=== PATIENT | male | born 1935 | race Hispanic/Latino ===

== ENCOUNTER 2018-04-12 06:25 | Observation (INO) | payer MEDICARE ==
[2018-04-06 10:39] VITALS: BMI 25.1
[2018-04-12] MEDS ORDERED: Etomidate 20 mg/10ml Inj IV ONE (08:04)
[2018-04-12] MEDS ORDERED: Phenylephrine 10 mg/ml Inj ONE (08:04)
[2018-04-12] MEDS ORDERED: Succinylcholine 200 mg/10 ml Inj IV ONE (08:04)
--- NOTE | 2018-04-12 08:32 | CP.SDSHP ---
Same Day Surgery H & P - History Proposed Procedure: recurrent right inguinal hernia repair with mesh placement Pre-Op Diagnosis: recurrent right inguinal hernia - Previous Medical/Surgical History Cardiac: Hypertension Pain: 2.Mild Pain Comments: Spoke with Dr. Swift who confirmed patient is not on any blood thinners. States he is on baby aspirin. Pt reports not taking baby aspirin in over a week. - Allergies Allergies: Allergies hay fever Allergy (Uncoded 04/12/18 06:38) CONGESTION RUNNY NOSE, SNEEZING - Physical Exam Vital Signs: Vital Signs 04/12/18 04/12/18 07:11 07:15 Temperature 98.5 F Pulse Rate 76 76 Respiratory 18 Rate Blood Pressure 137/69 O2 Sat by Pulse 97 Oximetry Mental Status: Alert & Oriented x3 Neuro: WNL Heart: WNL Lungs: WNL - {Optional Preform as Required} Abdomen: Other (Right inguinal hernia, not incarcerated) Integument: WNL : Other (BPH) - Impression Impression: 82M with recurrent right inguinal hernia Pt. Evaluated Today:Candidate for Anesthesia & Procedure: Yes - Date & Time Date: 04/12/18 Time: 08:33 Short Stay Discharge - Short Stay Discharge Admitting Diagnosis/Reason for Visit: K40.90 Disposition: HOME/ ROUTINE Referrals: Vin Swift MD [Primary Care Provider] - Additional Instructions (Diet, Activity): Follow up with Dr. Bee in 10-14 days Apply ice to affected area for 24 hours No heavy lifting May remove bandage in 48 hours OK to shower in 48 hours Resume regular diet
[2018-04-12] MEDS ORDERED: ceFAZolin IV 2 gm in Dextrose 2 GM/50 ML BAG IVPB ONE (08:35)
[2018-04-12] MEDS ORDERED: Ropivacaine 0.5% 30ML IV ONE (08:42)
[2018-04-12] MEDS ORDERED: Lactated Ringer's 1,000 ML IV ONE ×2 (08:45→09:52)
[2018-04-12] MEDS ORDERED: HYDROmorphone 0.5 mg/0.5 ml ISec IVP PRN (10:16)
[2018-04-12] MEDS ORDERED: Oxycodone/Acetaminophen 5/325 mg Tab PO PRN (10:18)
--- NOTE | 2018-04-12 10:21 | PCM.SURG1 ---
Surgeon's Initial Post Op Note - Surgeon's Notes Surgeon: Dr. Bee Tank Builder Supervisor: Dr. Herndon PGY2 Type of Anesthesia: General LMA Anesthesia Administered By: Dr. Edwards Pre-Operative Diagnosis: right recurrent inguinal hernia Operative Findings: Right inguinal hernia Post-Operative Diagnosis: same Operation Performed: Recurrent Right inguinal hernia repair with mesh placement Specimen/Specimens Removed: hernia sac Estimated Blood Loss: EBL {In ML}: 15 Blood Products Given: N/A Drains Used: No Drains Post-Op Condition: Good Date of Surgery/Procedure: 04/12/18 Time of Surgery/Procedure: 10:20
[2018-04-12] MEDS ORDERED: Lactated Ringer's 1,000 ML IV SCH (10:30)
[2018-04-12] MEDS: Trimethobenzamide 200 mg/2 mL Inj IM ONE ×2 (11:35→17:05)
[2018-04-12] MEDS ORDERED: Dexamethasone 4 mg/1 ml IVP PRN (12:36)
[2018-04-13 06:37] VITALS: RESP 20; TEMP 97.9
[2018-04-13 06:50] LABS: BASO % 0.1 % (0.0-2.0); HEMOGLOBIN 13.7 g/dL (12.0-18.0); LYMPH # 1.3 K/uL (1.0-4.3); LYMPH % 8.8 % (20.0-40.0); MEAN CELL VOLUME 86.4 fl (80.0-94.0); MEAN CORPUSCULAR HGB CONC 33.6 g/dL (33.0-37.0); MEAN PLATELET VOLUME 9.7 fl (7.2-11.7); MONO # 1.2 K/uL (0.0-0.8); MONO % 8.4 % (0.0-10.0); NEUT # 12.3 K/uL (1.8-7.0); NEUT % 82.7 % (50.0-75.0); PLATELET COUNT 189 K/uL (130-400); RBC 4.73 Mil/uL (4.40-5.90); RED CELL DISTRIBUTION WIDTH 14.2 % (11.5-14.5); WHITE BLOOD COUNT 14.9 K/uL (4.8-10.8)
[2018-04-13 06:58] LABS: BLOOD UREA NITROGEN 18 mg/dl (9-20); CALCIUM 8.7 mg/dL (8.4-10.2); GFR AFRICAN-AMERICAN > 60; GFR NON-AFRICAN AMERICAN > 60
[2018-04-13 08:11] VITALS: BP 142/72; PULSE 74; O2SAT 99
--- NOTE | 2018-04-13 09:32 | CP.PCM.PN ---
Subjective - Date & Time of Evaluation Date of Evaluation: 04/13/18 Time of Evaluation: 07:00 - Subjective Subjective: General Surgery Progress Note - Dr. Bee Objective - Vital Signs/Intake and Output Vital Signs (last 24 hours): Temp Pulse Resp BP Pulse Ox 97.9 F 74 20 142/72 99 04/13/18 08:10 04/13/18 08:10 04/13/18 08:10 04/13/18 08:10 04/13/18 08:10 - Medications Medications: Current Medications Lactated Ringer's (Lactated Ringer's) 1,000 mls @ 100 mls/hr IV .Q10H [facility] Last Admin: 04/12/18 17:05 Dose: Not Given Ondansetron HCl (Zofran Inj) 4 mg IVP Q6 PRN PRN Reason: Nausea/Vomiting Oxycodone/Acetaminophen (Percocet 5/325 Mg Tab) 1 tab PO Q4 PRN PRN Reason: Pain, moderate (4-7) Stop: 04/15/18 10:19 Pantoprazole Sodium (Protonix Inj) 40 mg IVP DAILY [facility] Last Admin: 04/13/18 09:09 Dose: 40 mg - Labs Labs: 04/13/18 05:40 04/13/18 05:40
[2018-04-13 11:41] LABS: LYMPHOCYTE 8 % (20-50); MONOCYTE 8 % (0-10); NEUTROPHIL 84 % (42-75); PLATELET ESTIMATE NORMAL (NORMAL); TOTAL CELLS COUNTED 100
[2018-04-13 11:42] LABS: ANISOCYTOSIS SLIGHT; LARGE PLATELETS PRESENT; OVALOCYTES SLIGHT
--- NOTE | 2018-04-13 12:33 | CP.PCM.CON ---
History of Present Illness - History of Present Illness History of Present Illness: CC: s/p Recurrent Right inguinal hernia repair with mesh placement HPI: 82 y/o man w/ pmh of HTN and HLD is admitted for s/p recurrent right inguinal hernia repair with mesh placement POD 1. The patient tolerated the procedure well and is recovering appropriately. The patient reports he is feeling better today compared to yesterday. The patient reports pain at the surgical site relieved w/ medication. The patient currently denies headaches, chest pain, SOB, dizziness, abdominal pain, nausea, vomiting, diarrhea, dysuria , or fever. The patient was seen and examined this morning at bedside w/ Dr. Swift Review of Systems - Review of Systems All systems: reviewed and no additional remarkable complaints except - Constitutional Constitutional: absent: Chills, Fever - EENT Eyes: absent: Change in Vision - Cardiovascular Cardiovascular: absent: Chest Pain - Respiratory Respiratory: absent: Dyspnea - Gastrointestinal Gastrointestinal: absent: Abdominal Pain, Diarrhea, Nausea, Vomiting - Genitourinary Genitourinary: absent: Dysuria - Integumentary Integumentary: absent: Rash - Neurological Neurological: absent: Dizziness, Headaches Past Patient History - Past Medical History & Family History Past Medical History?: Yes - Past Social History Smoking Status: Never Smoked - CARDIAC Hx Cardiac Disorders: Yes Hx Hypercholesterolemia: Yes Hx Hypertension: Yes - PULMONARY Hx Respiratory Disorders: No - NEUROLOGICAL Hx Neurological Disorder: No - HEENT Hx HEENT Problems: No - RENAL Hx Chronic Kidney Disease: No - ENDOCRINE/METABOLIC Hx Endocrine Disorders: No - HEMATOLOGICAL/ONCOLOGICAL Hx Blood Disorders: No Hx Blood Transfusions: No - INTEGUMENTARY Hx Dermatological Problems: No - MUSCULOSKELETAL/RHEUMATOLOGICAL Hx Musculoskeletal Disorders: No - GASTROINTESTINAL Hx Gastrointestinal Disorders: No - GENITOURINARY/GYNECOLOGICAL Hx Genitourinary Disorders: No - PSYCHIATRIC Hx Emotional Abuse: No Hx Physical Abuse: No - SURGICAL HISTORY Hx Surgeries: Yes Hx Herniorrhaphy: Yes (right inguinal) Hx Tonsillectomy: Yes - ANESTHESIA Hx Anesthesia: Yes Hx Anesthesia Reactions: No Hx Malignant Hyperthermia: No Has any member of the family had a problem w/ anesthesia?: No Meds Allergies/Adverse Reactions: Allergies Allergy/AdvReac Type Severity Reaction Status Date / Time hay fever Allergy CONGESTION Uncoded 04/12/18 06:38 - Medications Medications: Current Medications Lactated Ringer's (Lactated Ringer's) 1,000 mls @ 100 mls/hr IV .Q10H [facility] Last Admin: 04/12/18 17:05 Dose: Not Given Ondansetron HCl (Zofran Inj) 4 mg IVP Q6 PRN PRN Reason: Nausea/Vomiting Oxycodone/Acetaminophen (Percocet 5/325 Mg Tab) 1 tab PO Q4 PRN PRN Reason: Pain, moderate (4-7) Stop: 04/15/18 10:19 Pantoprazole Sodium (Protonix Inj) 40 mg IVP DAILY [facility] Last Admin: 04/13/18 09:09 Dose: 40 mg Physical Exam - Constitutional Appears: Non-toxic, No Acute Distress - Head Exam Head Exam: ATRAUMATIC, NORMAL INSPECTION, NORMOCEPHALIC - Eye Exam Eye Exam: Normal appearance - ENT Exam ENT Exam: Mucous Membranes Moist - Neck Exam Neck exam: Positive for: Full Rom. Negative for: Tenderness - Respiratory Exam Respiratory Exam: Clear to Auscultation Bilateral. absent: Accessory Muscle Use , Decreased Breath Sounds, Rales, Rhonchi, Wheezes, Respiratory Distress - Cardiovascular Exam Cardiovascular Exam: REGULAR RHYTHM. absent: Tachycardia - GI/Abdominal Exam GI & Abdominal Exam: Normal Bowel Sounds. absent: Distended, Tenderness - Exam Additional comments: right inguinal dressing c/d/i - Extremities Exam Extremities exam: Positive for: normal inspection. Negative for: calf tenderness - Neurological Exam Neurological exam: Alert, Normal Gait, Oriented x3 - Skin Skin Exam: Dry, Intact, Normal Color, Warm Results - Vital Signs Recent Vital Signs: Last Vital Signs Temp 97.9 F 04/13/18 08:10 Pulse 74 04/13/18 08:10 Resp 20 04/13/18 08:10 BP 142/72 04/13/18 08:10 Pulse Ox 99 04/13/18 08:10 - Labs Result Diagrams: 04/13/18 05:40 04/13/18 05:40 Labs: Laboratory Results - last 24 hr 04/13/18 04/13/18 05:40 05:40 WBC 14.9 H RBC 4.73 Hgb 13.7 Hct 40.8 MCV 86.4 MCH 29.0 MCHC 33.6 RDW 14.2 Plt Count 189 MPV 9.7 Neut % (Auto) 82.7 H Lymph % (Auto) 8.8 L [place] % (Auto) 8.4 Eos % (Auto) 0.0 Baso % (Auto) 0.1 Neut # (Auto) 12.3 H Lymph # (Auto) 1.3 [place] # (Auto) 1.2 H Eos # (Auto) 0.0 Baso # (Auto) 0.0 Neutrophils % (Manual) 84 H Lymphocytes % (Manual) 8 L Monocytes % (Manual) 8 Platelet Estimate Normal Large Platelets Present Anisocytosis (manual) Slight Macrocytosis (manual) Slight Ovalocytes Slight Sodium 139 Potassium 4.1 Chloride 103 Carbon Dioxide 25 Anion Gap 15 BUN 18 Creatinine 1.0 Est GFR ( Amer) > 60 Est GFR (Non-Af Amer) > 60 Random Glucose 136 H Calcium 8.7 Assessment & Plan (1) S/P right inguinal hernia repair Status: Acute (2) Recurrent right inguinal hernia Status: Chronic (3) HTN (hypertension) Status: Chronic (4) HLD (hyperlipidemia) Status: Chronic - Assessment and Plan (Free Text) Plan: c/w present management afebrile, non-tachycardic, normotensive WBC 14.9 most likely post op/post anesthesia patient has no complaints c/w incentive spirometry monitor for acute changes Dispo: patient is cleared for DC by PMD Dr. Swift, patient seen by Dr. Swift this morning, patient to follow up w/ Dr. Swift 04/17/2018
--- NOTE | 2018-04-13 13:57 | CP.PCM.DIS ---
Provider - Provider Date of Admission: 04/12/18 15:17 Attending physician: Cedric Bee MD Primary care physician: Vin Rocha MD Time Spent in preparation of Discharge (in minutes): 30 Hospital Course - Lab Results Lab Results: Most Recent Lab Values WBC 14.9 K/uL (4.8-10.8) H 04/13/18 05:40 RBC 4.73 Mil/uL (4.40-5.90) 04/13/18 05:40 Hgb 13.7 g/dL (12.0-18.0) 04/13/18 05:40 Hct 40.8 % (35.0-51.0) 04/13/18 05:40 MCV 86.4 fl (80.0-94.0) 04/13/18 05:40 MCH 29.0 pg (27.0-31.0) 04/13/18 05:40 MCHC 33.6 g/dL (33.0-37.0) 04/13/18 05:40 RDW 14.2 % (11.5-14.5) 04/13/18 05:40 Plt Count 189 K/uL (130-400) 04/13/18 05:40 MPV 9.7 fl (7.2-11.7) 04/13/18 05:40 Neut % (Auto) 82.7 % (50.0-75.0) H 04/13/18 05:40 Lymph % (Auto) 8.8 % (20.0-40.0) L 04/13/18 05:40 [place] % (Auto) 8.4 % (0.0-10.0) 04/13/18 05:40 Eos % (Auto) 0.0 % (0.0-4.0) 04/13/18 05:40 Baso % (Auto) 0.1 % (0.0-2.0) 04/13/18 05:40 Neut # (Auto) 12.3 K/uL (1.8-7.0) H 04/13/18 05:40 Lymph # (Auto) 1.3 K/uL (1.0-4.3) 04/13/18 05:40 [place] # (Auto) 1.2 K/uL (0.0-0.8) H 04/13/18 05:40 Eos # (Auto) 0.0 K/uL (0.0-0.7) 04/13/18 05:40 Baso # (Auto) 0.0 K/uL (0.0-0.2) 04/13/18 05:40 Neutrophils % (Manual) 84 % (42-75) H 04/13/18 05:40 Lymphocytes % (Manual) 8 % (20-50) L 04/13/18 05:40 Monocytes % (Manual) 8 % (0-10) 04/13/18 05:40 Platelet Estimate Normal (NORMAL) 04/13/18 05:40 Large Platelets Present 04/13/18 05:40 Anisocytosis (manual) Slight 04/13/18 05:40 Macrocytosis (manual) Slight 04/13/18 05:40 Ovalocytes Slight 04/13/18 05:40 Sodium 139 mmol/l (132-148) 04/13/18 05:40 Potassium 4.1 MMOL/L (3.6-5.0) 04/13/18 05:40 Chloride 103 mmol/L (98-107) 04/13/18 05:40 Carbon Dioxide 25 mmol/L (22-30) 04/13/18 05:40 Anion Gap 15 (10-20) 04/13/18 05:40 BUN 18 mg/dl (9-20) 04/13/18 05:40 Creatinine 1.0 mg/dl (0.8-1.5) 04/13/18 05:40 Est GFR ( Amer) > 60 04/13/18 05:40 Est GFR (Non-Af Amer) > 60 04/13/18 05:40 Random Glucose 136 mg/dL (75-110) H 04/13/18 05:40 Calcium 8.7 mg/dL (8.4-10.2) 04/13/18 05:40 - Hospital Course Hospital Course: 82 year old male patient PMHx HTN, HLD found to have a recurrent right inguinal hernia was admitted on 04/12/18 s/p recurrent right inguinal hernia repair with mesh placement. Patient tolerated the procedure and anesthesia well, and underwent an uneventful post-operative course while in house. Patient was evaluated by surgery and PMD Dr. Rocha, and is cleared for safe discharge home. Patient is to follow up with Dr. Bee in office within 1 week of discharge, and will follow up with Dr. Rocha in office on 04/17/18. - Date & Time of H&P Date of H&P: 04/12/18 Discharge Exam - Head Exam Head Exam: ATRAUMATIC, NORMAL INSPECTION, NORMOCEPHALIC - Eye Exam Eye Exam: EOMI, Normal appearance Pupil Exam: NORMAL ACCOMODATION, PERRL - ENT Exam ENT Exam: Mucous Membranes Moist - Neck Exam Neck exam: Full Rom - Respiratory Exam Respiratory Exam: NORMAL BREATHING PATTERN, UNREMARKABLE. absent: Respiratory Distress - Cardiovascular Exam Cardiovascular Exam: REGULAR RHYTHM - GI/Abdominal Exam GI & Abdominal Exam: Soft, Unremarkable. absent: Distended, Firm, Tenderness - Exam Additional comments: R inguinal dressing - Extremities Exam Extremities exam: full ROM, normal inspection - Neurological Exam Neurological exam: Alert, Oriented x3 - Psychiatric Exam Psychiatric exam: Normal Affect, Normal Mood - Skin Skin Exam: Dry, Intact, Normal Color Discharge Plan - Follow Up Plan Condition: GOOD Disposition: HOME/ ROUTINE Instructions: Hernia Repair (DC), Hypertension (DC) Additional Instructions: Follow up with Dr. Bee within one week Apply ice to affected area for 24 hours No heavy lifting May remove bandage in 48 hours OK to shower in 48 hours Resume regular diet follow up with dr rocha 04/17/18 Referrals: Vin Rocha MD [Primary Care Provider] - Cedric Bee MD [Medical Doctor] -
--- NOTE | 2018-04-21 11:30 | PCM.OP ---
Operative Report - Operative Report Date of Surgery/Procedure: 04/12/18 Time of Surgery/Procedure: 10:00 Surgeon: Dr. Cedric Bee Mortgage Processing Manager: Dr. Jared Herndon Anesthesia/Sedation: general/Dr. Edwards Pre-Operative Diagnosis: Incarcerated right inguinal hernia Post-Operative Diagnosis: same Indication for Surgery: aas above Operative Findings: as above Procedure/Operation Description: 1-Repair right incarcerated inguinal hernia with mesh. Description of the procedure: The patient was brought to the operating room and after induction of endotracheal anesthesia he was prepped and drapped in the usual sterile manner. Using a 10 bklade a right inguinal incision was made and the anterior fascai of the external oblique muscle was incised medially and laterally. The ileoinguinal nerve could not be identified. The spermatic cord contents were bluntly disscted and lopped with a nica drain. A large indirect component was idnetified. The contents were reduced. A Prolene mesh with a large plug was secured to the inguinal ligament and conjoined tednon with two continuous 2-0 Prolene sutures. The Nica was released. The external oblique fascia was cloed with continuoiius 3-0 vicryl sutures. The skin was closed in two layers with 3-0 vicryl and 4-0 monocryl. A clean dressing was applied. All counts were correct and hemostasis was deemed adeqaute. The patient was awakened, extubarted and brought to the PACUn in stable condition. Estimated Blood Loss: 15 cc Complications: none Discharge & Condition: stable
== END 2018-04-13 15:05 | disposition home or self-care (01) ==
LOC: H.OPSURG 06:25 → H.ERHOLD 15:17 → H.MEDSURG1 16:17
PROVIDERS: ADMIT Surgery; ATTEND Surgery
DX: K40.91 Unilateral inguinal hernia, without obstruction or gangrene, recurrent (principal); I10 Essential (primary) hypertension; E78.5 Hyperlipidemia, unspecified; E78.00 Pure hypercholesterolemia, unspecified
CPT/HCPCS: 36415; 49520; 64486; 80048; 85025; 88302; C1781; C9113; G0378; J0330; J0690; J1170; J1885; J2001; J2370; J2405; J3010; J7030; J7120